=== PATIENT | female | born 1990 | race Caucasian/White ===

== ENCOUNTER → 2017-06-29 | Outpatient (CLI) | payer BC | END | disposition home or self-care (01) | LOC: C.PAPS 12:12 | PROVIDERS: ATTEND Family Medicine | DX: Z01.419 Encounter for gynecological examination (general) (routine) without abnormal findings (principal) ==

== ENCOUNTER 2020-08-10 17:46 | Inpatient (IN) ==
[2020-08-10] MEDS ORDERED: OXYTOCIN 30 UNITS/500 ML BAG IV PRN ×2 (18:42→18:45)
[2020-08-10 19:30] LABS: Hematocrit (blood only) 35.5 % (37-47); Hemoglobin 12.4 g/dL (12.0-16.0); Mean Corpuscular Hemoglobin 31.7 pg (25-34); Mean Corpuscular Hgb Conc 34.9 g/dL (32-36); Mean Corpuscular Volume 90.8 fL (80-100); Mean Platelet Volume 13.7 fL (7.4-10.4); Platelet Count 163 K/uL (130-400); RDW Coefficient of Variation 12.7 % (11.5-14.5); RDW Standard Deviation 41.5 fL (36.4-46.3); Red Blood Count 3.91 M/uL (4.2-5.4); White Blood Count 10.79 K/uL (4.8-10.8)
[2020-08-10 19:49] LABS: Creatinine Clr Calc Pharmacy 86.4 ml/min; Est GFR (Non-African American) 80.3
[2020-08-10] MEDS: LACTATED RINGER'S 1,000 ML IV PRN (20:00)
[2020-08-10] MEDS ORDERED: BUTORPHANOL TARTRATE 1 MG/ML VIAL IV PRN (20:18)
[2020-08-10] MEDS ORDERED: ONDANSETRON INJ 2 MG/ML 2 ML VIAL IV PRN (20:18)
--- NOTE | 2020-08-10 20:24 | History & Physical Report ---
Date of Service August 10, 2020 Assessment & Plan Admission and Anticipated Discharge Date Admission Date: August 10, 2020 IUP at 38 4/7 weeks with suspected cholestasis of . will sent rest of PIH labs as BP is mildly elevated Orders for IV Zofran and Stadol placed for PRN use. hold on pitocin until contraction pattern slows. would like to attempt unmedicated anticipate vaginal delivery History of Present Illness Primary Care Provider: Silvia Pruett MD Patient is a 30 yo white female EDC 08/20/20 who presented to the office today with a chief complaint of intense pruritis especially of her palms & soles of her feet. bloodwork was done to rule out cholestasis of . bile acids are still pending, but AST & ALT are mildly elevated. After consultation with [facility], it was recommended that she be delivered. she now presents for IOL. no PIH symptoms. having some cramping but no ctns yet. baby active. GBS negative. up to this point has been uncomplicated. Allergies Allergy/AdvReac Type Severity Reaction Status Date / Time codeine Allergy Unknown Unknown Verified 08/10/20 15:39 Home Medications Medication Instructions Recorded Confirmed Type prenat.vits,nick,[id number]-[id number] 1 tab PO DAILY 01/01/20 08/10/20 History ferrous sulfate 65 mg PO BID 06/10/20 08/10/20 History Patient History Medical History Chronic tonsillitis Encounter for anatomic survey Evaluate anatomy not seen on prior sonogram H/O varicella Miscarriage Surgical History S/P eye surgery S/P wisdom tooth extraction Family History Father Melanoma, Onset Age: 58 Dyslipidemia Hearing loss Sister Asherman syndrome Hypothyroidism Graves Mother Bipolar 1 disorder Grandfather (Maternal) Myocardial infarction Cardiac disorder Grandfather (Paternal) Prostate cancer Cardiac disorder Colorectal cancer Grandmother (Paternal) Cardiac disorder Denies family history of Malignant hypothermia due to anesthesia Ovarian cancer Breast cancer Social History Smoking Status: Never smoker Second Hand Exposure: No; Hx Alcohol Use: No Hx Substance Use: No Preferred Language: Indonesian Communication Ability: Effective Visual Impairment: No Limitations Hearing Ability: Normal Devops Required: No Beliefs That Will Affect Care: None marital status: marital status details: Oscar (31) [phone] or [phone] Current Living Situation: Spouse Current Living Situation Comment: lives with spouse, 1 cat, spouse to change litter current occupational status: employed current occupation: [employer] Other Information That Helps Us Care for You: No Feels Safe at Home: Yes Safety Concerns: Feels Safe At This Time Childhood Exposure to Second-Hand Smoke: No Dental Care, Regularly: Yes Physical Activity Frequency: 1-2 Times per Week Seatbelt Use: always Sunscreen Use: Yes Assistive Devices: None Review of Systems All systems reviewed & are unremarkable except as noted in HPI & below Physical Exam Constitutional: WD/WN, vitals as above Respiratory: normal respiratory effort, lungs clear to auscultation Cardiovascular: RRR, no murmur, no edema Gastrointestinal (Abdomen): normal bowel sounds, soft, nontender, no hepatosplenomegaly Psychiatric: A+Ox3, euthymic affect Genitourinary: OB Exam Abdomen: + irregular contractions (mild) Manual OB Exam: + cervical dilation 1 cm, + cervical effacement 70% and + station -1 (posterior) OB Exam Monitor Tracing: + external FHT monitor used, + external uterine monitor used, + category I and + normal FHT variability patient counselled on IOL starting with cervical balloon. the procedure and it's risks were reviewed with the patient & her and they accept. After the speculum was placed, the cervical balloon was inserted easily into the os and then instilled with 40cc of water and placed on traction against right thigh. patient tolerated the procedure well. Results & Data ([facility]) Vital Signs (Past 12 Hours) Vital Signs Temp Pulse Resp BP 08/10/20 19:15 98.6 F 68 18 139/91 08/10/20 19:08 98.6 F 18 08/10/20 18:45 20 08/10/20 18:15 98.2 F 20 08/10/20 18:03 98.4 F 73 18 146/92 H Code Status & VTE Plan VTE Prophylaxis Plan VTE Prophylaxis will be ordered: No Coding Level of Care Code None CPT Codes Misx Procedure Codes - 76232 Placement of cervical dilator: 09737 Placement of cervical dilator ([id number])
[2020-08-10 20:27] LABS: Protein Creatinine Ratio Urine 0.2 (0-0.2); Total Protein Urine Random 20.9 mg/dl (0-11.9)
[2020-08-11] MEDS ORDERED: CALCIUM CARBONATE 500 MG CHEWABLE TAB PO ONE (01:04)
[2020-08-11] MEDS ORDERED: BUPIVACAINE 0.25% 30 ML VIAL ONE ×2 (02:18→02:59)
[2020-08-11] MEDS ORDERED: fentaNYL 2MCG/ML ROPIVACAINE 1.25MG/ML 100 ML BAG EPI ONE (02:18)
[2020-08-11] MEDS ORDERED: fentaNYL citrate 100 MCG/2 ML VIAL ONE (02:18)
[2020-08-11] MEDS ORDERED: ePHEDrine sulfate 50 MG/ML AMP ONE (02:18)
[2020-08-11] MEDS ORDERED: SODIUM CHLORIDE 0.9% INJ 10 ML VIAL ONE (02:18)
[2020-08-11] MEDS ORDERED: NALOXONE HCL 1 MG in SODIUM CHLORIDE 0.9% 1000ML 1,000 ML IV PRN ×2 (02:23→10:53)
[2020-08-11] MEDS ORDERED: ePHEDrine sulfate 50 MG/ML AMP IV PRN ×2 (02:23→10:53)
[2020-08-11] MEDS ORDERED: diphenhydrAMINE 50 MG/ML VIAL IV PRN ×2 (02:23→10:53)
[2020-08-11] MEDS ORDERED: fentaNYL 2MCG/ML ROPIVACAINE 1.25MG/ML 100 ML BAG EPI PRN (02:23)
[2020-08-11] MEDS ORDERED: ONDANSETRON INJ 2 MG/ML 2 ML VIAL IV PRN ×2 (02:23→10:53)
[2020-08-11] MEDS ORDERED: NALOXONE HCL 0.4 MG/1 ML VIAL/CARP IV PRN ×2 (02:23→10:53)
--- NOTE | 2020-08-11 02:25 | Anesthesiology Consultation ---
Date of Service August 11, 2020 Assessment & Plan (1) Encounter for pre-operative examination: Chart Review Chart Review: Patient NOT seen in Pre Admission Testing and Acceptable Risk for Labor Epidural Consults Requested none History Height/Weight Height: 5 ft 4 in Weight: 77.111 kg Allergies Allergy/AdvReac Type Severity Reaction Status Date / Time codeine Allergy Unknown Unknown Verified 08/10/20 15:39 Medications Home Medications Medication Instructions Recorded Confirmed Last Taken prenat.vits,nick,qof-spxg-asqux 1 tab PO DAILY 01/01/20 08/10/20 08/10/20 ferrous sulfate 65 mg PO BID 06/10/20 08/10/20 08/10/20 Active Medications Generic Name Dose Route Start Last Admin Trade Name Freq PRN Reason Stop Dose Admin Butorphanol Tartrate 1 mg 08/10/20 20:18 08/11/20 00:18 Butorphanol Tartrate 1 Mg/Ml Vial IV 09/09/20 20:17 1 mg Q2H PRN Administration Pain Lactated Ringer's 1,000 mls @ 125 mls/hr 08/10/20 18:42 08/11/20 01:30 Lr IV 08/12/20 18:41 0 mls/hr .Q8H PRN Infusion L&D Protocol Protocol Ondansetron HCl 4 mg 08/10/20 20:18 08/11/20 00:16 Ondansetron Inj 2 Mg/Ml 2 Ml Vial IV 09/09/20 20:17 4 mg Q6H PRN Administration Nausea Past Medical History Medical History Chronic tonsillitis Encounter for anatomic survey Evaluate anatomy not seen on prior sonogram H/O varicella Miscarriage Exercise / Class Metabolic Activity II 4-5 Yardwork/Stairs/Walk up hill Past Family History Family History Father Melanoma, Onset Age: 58 Dyslipidemia Hearing loss Sister Asherman syndrome Hypothyroidism Graves Mother Bipolar 1 disorder Grandfather (Maternal) Myocardial infarction Cardiac disorder Grandfather (Paternal) Prostate cancer Cardiac disorder Colorectal cancer Grandmother (Paternal) Cardiac disorder Denies family history of Malignant hypothermia due to anesthesia Ovarian cancer Breast cancer Past Surgical History Surgical History S/P eye surgery S/P wisdom tooth extraction Past Anesthesia History No Hx of Anesthesia Complications and No Family Hx of Anesthesia Complications History of PONV No Hx of PONV and No Hx of Motion Sickness Social History Smoking Status: Never smoker Do You Dip or Chew Tobacco: No Hx Alcohol Use: No Alcohol type: beer and wine Hx Substance Use: No Physical Exam Vital Signs Last Vital Signs Temp 37.0 C 08/11/20 01:21 Pulse 76 08/11/20 02:40 Resp 18 08/10/20 23:10 BP 121/67 08/11/20 01:21 Pulse Ox 92 08/11/20 02:40 Testing Laboratory Results 08/10/20 19:08 08/10/20 19:08
[2020-08-11] MEDS: LACTATED RINGER'S 1,000 ML IV PRN ×2 (02:45→07:08)
[2020-08-11] MEDS ORDERED: ERYTHROMYCIN OP OINT 1 GM PKT ONE (03:16)
--- NOTE | 2020-08-11 09:39 | Obstetrical Progress Note ---
Date of Service August 11, 2020 Assessment & Plan (1) with 38 completed weeks gestation: (2) Cholestasis during : Admission and Anticipated Discharge Date Admission Date: August 10, 2020 Patient has been pushing off and no for about 3 hours now. She has good effort but not really moving baby . We discussed options at this point. Can attempt to place a vacuum but did discuss my concern about appropriate placement with the caput noted. Discussed the risk of pop offs, hematomas, skin disruption on the scalp. Discussed if wants to could just go to c/s--r/b/se explained. discussed that if could not get any progress with vacuum would then necessitate a c/s. Patient will continue to push until or cleaned and then it sounds like they wish me to attempt a vacuum. Fetus overall reassuring with pushing. Subjective Patient pushing with good effort, getting tired, uncomfortable. Physical Exam Constitutional: WD/WN, vitals as above Psychiatric: A+Ox3, euthymic affect Genitourinary: cx--complete/ +1 at best at the end of the push. large amount of caput noted, baby slips back up to 0 station after push, not really staying down. toco--q2-4min, pit at 5 efm--150s wtih mod variability, variables with pushing. [facility] & [facility] ([facility] Vital Signs (Past 12 Hours) Vital Signs Temp Pulse Resp BP Pulse Ox 08/11/20 09:31 97 H 97 08/11/20 09:26 92 H 97 08/11/20 09:21 134 H 97 08/11/20 09:20 93 H 125/63 08/11/20 09:16 148 H 97 08/11/20 09:11 89 97 08/11/20 09:10 92 H 129/76 08/11/20 09:06 105 H 97 08/11/20 09:01 81 99 08/11/20 09:00 37.1 C 22 08/11/20 08:56 130 H 98 08/11/20 08:51 110 H 98 08/11/20 08:46 84 97 08/11/20 08:45 18 08/11/20 08:41 111 H 96 08/11/20 08:36 125 H 116/60 98 08/11/20 08:31 78 97 08/11/20 08:30 20 12/22/20 08:26 105 H 97 08/11/20 08:21 86 98 08/11/20 08:16 122 H 99 08/11/20 08:12 65 94 08/11/20 08:11 73 97 08/11/20 08:06 89 100 08/11/20 08:05 60 139/79 08/11/20 08:01 70 96 08/11/20 08:00 22 08/11/20 07:58 65 151/72 H 08/11/20 07:56 80 99 08/11/20 07:51 83 99 08/11/20 07:46 65 99 08/11/20 07:45 22 08/11/20 07:41 94 H 99 08/11/20 07:36 77 98 08/11/20 07:34 81 114/71 08/11/20 07:31 71 98 08/11/20 07:30 22 08/11/20 07:26 101 H 98 08/11/20 07:21 79 97 08/11/20 07:16 98 H 98 08/11/20 07:11 36.8 C 93 H 22 98 08/11/20 07:06 96 H 97 08/11/20 07:01 76 97 08/11/20 07:00 18 08/11/20 06:56 85 97 08/11/20 06:51 89 97 08/11/20 06:50 90 123/68 08/11/20 06:46 80 97 08/11/20 06:41 93 H 96 08/11/20 06:36 87 97 08/11/20 06:35 77 123/56 L 08/11/20 06:31 101 H 97 08/11/20 06:30 18 08/11/20 06:26 97 H 97 08/11/20 06:21 80 113/65 97 08/11/20 06:16 37.2 C 80 99 08/11/20 06:11 84 98 08/11/20 06:06 91 H 98 08/11/20 06:01 77 95 08/11/20 06:00 18 08/11/20 05:56 79 99 08/11/20 05:51 61 100 08/11/20 05:49 62 148/78 H 08/11/20 05:46 60 96 08/11/20 05:41 68 97 08/11/20 05:36 75 148/81 H 98 08/11/20 05:31 73 99 08/11/20 05:30 18 08/11/20 05:26 92 H 98 08/11/20 05:22 69 94 08/11/20 05:21 81 99 08/11/20 05:19 71 138/83 08/11/20 05:16 65 96 08/11/20 05:11 79 97 08/11/20 05:06 84 95 08/11/20 05:01 99 H 96 08/11/20 05:00 18 08/11/20 04:56 112 H 99 08/11/20 04:51 94 H 97 08/11/20 04:50 78 121/59 L 08/11/20 04:47 84 92 08/11/20 04:46 75 99 08/11/20 04:41 108 H 99 08/11/20 04:36 72 100 08/11/20 04:35 93 H 118/58 L 08/11/20 04:34 85 94 08/11/20 04:31 75 99 08/11/20 04:30 18 08/11/20 04:26 75 99 08/11/20 04:23 107 H 92 08/11/20 04:21 71 100 08/11/20 04:19 72 140/82 08/11/20 04:16 87 100 08/11/20 04:11 65 100 08/11/20 04:06 71 100 08/11/20 04:05 63 144/81 H 08/11/20 04:04 84 92 08/11/20 04:01 65 100 08/11/20 04:00 18 08/11/20 03:56 59 L 100 08/11/20 03:51 77 100 08/11/20 03:50 58 L 124/71 08/11/20 03:46 60 100 08/11/20 03:41 63 100 08/11/20 03:36 61 100 08/11/20 03:35 60 131/84 08/11/20 03:31 77 100 08/11/20 03:30 18 08/11/20 03:26 72 100 08/11/20 03:21 72 100 08/11/20 03:16 64 100 12/22/20 03:15 75 107/81 12/22/20 03:11 89 100 08/11/20 03:10 68 118/59 L 08/11/20 03:06 70 100 08/11/20 03:02 81 118/73 08/11/20 03:01 74 100 08/11/20 03:00 18 08/11/20 02:56 86 100 08/11/20 02:55 18 08/11/20 02:53 18 08/11/20 02:52 74 118/56 L 08/11/20 02:51 72 18 100 08/11/20 02:50 71 124/67 08/11/20 02:49 18 08/11/20 02:48 69 119/61 08/11/20 02:47 83 18 122/68 08/11/20 02:46 88 18 100 08/11/20 02:45 18 08/11/20 02:42 69 137/62 08/11/20 02:41 72 100 08/11/20 02:40 76 92 08/11/20 02:36 61 100 08/11/20 01:21 37.0 C 64 121/67 08/11/20 00:24 60 109/58 L 08/10/20 23:10 37.0 C 77 18 125/70 08/10/20 22:06 58 L 132/74 PG Care Time/CCT Total # of Minutes Spent Total Time Spent with Patient: Total time spent is greater than 50% in c oordination of care (as documented) at patient's floor/unit and/or counseling patient: Coding Level of Care Code None Diagnoses with 38 completed weeks gestation Z3A.38 Cholestasis during O26.619; K83.1
[2020-08-11] MEDS ORDERED: LACTATED RINGER'S 1,000 ML IV SCH ×2 (10:00→11:30)
[2020-08-11] MEDS ORDERED: MoRPHine SULFATE PF 1 MG/ML 10 ML AMP/VIAL ONE (10:02)
--- NOTE | 2020-08-11 10:03 | Communication Note ---
Date of Service: August 11, 2020 Again discussed options of continued pushing, attempt at vacuum assist, proceeding to c/s. Discuseed r/b/se of each. the patient has essentially not moved the baby past 0-+1 for the 2 + hours I have been caring for this patient. They have decided to proceed to c/s. Consent form reviewed and signed. Will proceed. fht--155 with mod variability, variables resolved without pushing.
[2020-08-11] MEDS ORDERED: CITRIC ACID/SODIUM CITRATE 15 ML UDC ONE (10:12)
[2020-08-11] MEDS ORDERED: CITRIC ACID/SODIUM CITRATE 15 ML UDC PO SCH (10:15)
[2020-08-11] MEDS ORDERED: ceFAZolin 2000MG 2,000 MG/15 ML SYR IV SCH (10:15)
[2020-08-11] MEDS ORDERED: PROMETHAZINE HCL 12.5 MG in SODIUM CHLORIDE 0.9% 50 ML IV PRN (10:53)
[2020-08-11] MEDS ORDERED: LACTATED RINGER'S 500 ML IV PRN (10:53)
[2020-08-11] MEDS ORDERED: ARISTA ABSORBABLE HEMOSTAT 3GM TOP ONE (10:53)
[2020-08-11] MEDS ORDERED: MEPERIDINE HCL 25 MG/ML CARP/VIAL IV PRN (10:53)
[2020-08-11] MEDS ORDERED: NALOXONE HCL 0.08 MG in SYRINGE 1.8 ML IV PRN (10:53)
[2020-08-11] MEDS ORDERED: MoRPHine SULFATE PF 1 MG/ML 10 ML AMP/VIAL EPI ONE (10:53)
[2020-08-11] MEDS ORDERED: NO NARCOTICS OR SEDATIVES SCH (11:00)
[2020-08-11] MEDS ORDERED: SODIUM CHLORIDE 0.9% 1000ML 1,000 ML IV SCH (11:00)
[2020-08-11] MEDS ORDERED: METOCLOPRAMIDE HCL INJ 5 MG/ML 2 ML VIAL ONE (11:05)
[2020-08-11] MEDS ORDERED: OXYTOCIN 10 UNITS/ML VIAL ONE (11:05)
[2020-08-11] MEDS ORDERED: PHENYLEPHRINE 100MCG/ML 5ML SYR ONE (11:05)
[2020-08-11] MEDS ORDERED: ONDANSETRON INJ 2 MG/ML 2 ML VIAL ONE (11:05)
[2020-08-11] MEDS ORDERED: PATIENT'S ALLERGY INFO NEEDS ENTERED SCH (11:15)
[2020-08-11] MEDS ORDERED: SUPERCREAM 0.870% 15 GM JAR EXT PRN (11:22)
[2020-08-11] MEDS ORDERED: DIPHTHERIA/TETANUS/PERTUSSIS 0.5 ML SYR/VIAL IM ONE (11:22)
[2020-08-11] MEDS ORDERED: BENZOCAINE 20% AER SPR 82.5 GM CAN EXT PRN (11:22)
[2020-08-11] MEDS ORDERED: HYDROCORTISONE ACETATE 25 MG SUPP PR PRN (11:22)
[2020-08-11] MEDS ORDERED: MAGNESIUM HYDROXIDE SUSP 30 ML UDC PO PRN (11:22)
[2020-08-11] MEDS ORDERED: SENNA 8.6 MG TAB PO PRN (11:22)
--- NOTE | 2020-08-11 11:33 | Operative Report ---
PG Post Operative Report Pre & Post Diagnosis Operation Date: 08/11/20 10:20 Pre-Op Diagnosis: at 38 Weeks; Cholestasis; Failure to Descend Post-Op Diagnosis: Same; Delivery of a live male child at 1038 I identified the patient and participated in the time-out.: Yes Procedure Operation Date: 08/11/20 10:20 Actual Procedures p primary low transverse Section in LD(Bilateral) - Fabiola Chao MD, FACOG Surgeon Fabiola Chao MD, FACOG Bed Spring Maker Vita Griffin RN Estimated Blood Loss 600 Findings Consistent with Post-Op Diagnosis viable male infant in cephalic presentation, nl utx/tubes/ovs bilaterally Fluids 2000cc Specimens none Drains monte Anesthesia Type Labor Epidural Complications none Disposition Accompanied Patient To Recovery: Yes Disposition: L&D Indications Patient is a 30yowf who presented to labor and delivery at 38 4/7 weeks with presumed choliestasis of . Patient progressed spontaneously after srom to c/c. she pushed effectively for over 3 hours and did not bring the baby past +1 station. Description of Procedure The patient was taken to the operating room where she was identified verbally and by bracelet. She was seated on the operating table where her epidural anesthetic was dosed. she was then placed in the supine position with a leftward tilt. A Monte catheter had been placed sterilely. the patient was prepped and draped in a normal standard fashion. the anesthetic was tested and found to be adequate. A time-out was held, identifying correct patient, procedure, positioning and preoperative antibiotics. There were no concerns. A Pfannenstiel skin incision was made with a knife and taken down to the underlying layer of fascia with the knife and Bovie electrocautery. Bleeding was attended to with Bovie cautery. The fascia was incised in the midline with the knife and taken out laterally with scissors. the superior edge of the fascial incision was grasped, elevated and the underlying layer of rectus muscle was taken off bluntly and with scissors. In a similar fashion, the inferior edge of the fascial incision was grasped, elevated and the underlying layer of rectus muscle was taken off bluntly and with scissors. The muscles were s eparated bluntly in the midline. The peritoneum was entered bluntly. The incision was then stretched. The bladder blade was placed. The vesicouterine peritoneum was identified, entered with scissors and taken out laterally with scissors. The bladder flap was created digitally A hysterotomy incision was scored with a knife and the incision was stretched cephalad and caudad with the pole sander operator's fingers. Thick meconium was noted on entering the uterus. The operators hand was placed into the incision and the head was delivered atraumatically, it was very deep in the pelvis. No nuchal cord. The nose and mouth were bulb suctioned. the rest of the was then delivered without difficulty. The nose and mouth were again bulb suctioned. the cord was clamped and cut and the infant was then handed off to the awaiting dowel inspector for drying and attention. Cord blood and segment were obtained. The placenta was manually extraced. the uterus was exteriorized and cleared of all clot and debris with moistened laparotomy sponges. The hysterotomy incision was repaired in two layers, the first in a running locked layer, the second in an imbricating layer. Hemostasis was noted to be good. Posterior cul-de-sac was irrigated and cleared of all clot and debris. The hysterotomy incision was again inspected and found to be hemostatic. the uterus was reinteriorized. Hysterotomy incision was again inspected and found to be hemostatic. Saritha was placed on the incision and bladder flap. Rectus muscles were reapproximated with several interrupted stitches of 0 Vicryl. The fascia was then reapproximated with 0 Vicryl starting at the edges and meeting in the midline. The subcuticular tissues were copiously irrigated and bleeding was attended to with cautery. The skin was then closed with 4-0 Vicryl in a subcuticular fashion. I attest to the content of the Intraoperative Record and any orders documented therein. Any exceptions are noted below. OB Procedure charges OB Charges 50067 C/S
[2020-08-11 11:37] LABS: Base Excess Cord Arterial Bld -6.4 mEq/L (-9-1.8); CO2 Cord Arterial Blood 50 mmHg (39.1-73.5); Cord Venous Blood HCO3 20 mmol/L (18.4-26.8); Cord Venous Blood PCO2 41 mmHg (30.4-57.2); Cord Venous Blood PO2 19 mmHg (14.1-43.3); Cord Venous Blood pH 7.31 (7.20-7.44); HCO3 Cord Arterial Blood 21 mmol/L (19.7-28.5); PO2 Cord Arterial Blood 11 mmHg (4.1-31.7); pH Cord Arterial Blood 7.25 (7.1-7.38)
[2020-08-11 11:38] LABS: O2 Saturation Cord Venous Bld < 60.0 % (<68); Oxygen Sat Cord Arterial Blood < 60.0 % (<60)
--- NOTE | 2020-08-11 12:18 | Anesthesia Procedure Note ---
Date of Service August 11, 2020 Anesthesia Post Epidural Note Vital Signs Vital Signs: Temp Pulse Resp BP Pulse Ox 36.9 C 88 25 H 109/64 99 08/11/20 11:34 08/11/20 12:12 08/11/20 11:34 08/11/20 12:12 08/11/20 12:12 Pain Intensity Abdomen: Pain Intensity: 9 Notes Mental Status: alert / awake / arousable and participated in evaluation Nausea / Vomiting: adequately controlled Pain: adequately controlled Airway Patency, RR, SpO2: stable & adequate BP & HR: stable & adequate Hydration State: stable & adequate Neuraxial Anesthesia: was administered and sensory block is resolving Anesthetic Complications: no major complications apparent Epidural: Removed without complications and With tip intact
[2020-08-11] MEDS: OXYTOCIN 20 UNITS in LACTATED RINGER'S 1,000 ML IV SCH ×2 (12:39→20:45)
[2020-08-11] MEDS: KETOROLAC 30 MG/ML VIAL IV PRN (15:25)
[2020-08-11] MEDS: SIMETHICONE 80 MG CHEW PO SCH ×3 (15:25→20:16)
--- NOTE | 2020-08-11 18:16 | Anesthesiology Progress Note ---
Date of Service August 11, 2020 Anesthesia Post Procedure Vital Signs Vital Signs: Temp Pulse Pulse Resp BP BP Pulse Ox 08/11/20 17:40 20 99 08/11/20 16:40 20 98 08/11/20 15:40 37.3 C 76 20 122/78 98 08/11/20 14:05 36.9 C 20 08/11/20 13:52 81 93 08/11/20 13:47 77 93 08/11/20 13:42 79 94 08/11/20 13:37 88 92 08/11/20 13:35 83 112/65 08/11/20 13:32 87 94 08/11/20 13:27 81 93 08/11/20 13:22 91 H 94 08/11/20 13:17 73 92 08/11/20 13:12 88 93 08/11/20 13:07 88 92 08/11/20 13:05 81 116/66 08/11/20 13:02 79 16 94 08/11/20 12:57 81 94 08/11/20 12:52 82 93 08/11/20 12:47 84 95 08/11/20 12:42 85 95 08/11/20 12:37 82 99 08/11/20 12:32 36.8 C 81 16 117/68 100 08/11/20 12:27 89 100 08/11/20 12:22 85 16 113/69 100 08/11/20 12:17 93 H 99 08/11/20 12:12 88 109/64 99 08/11/20 12:07 83 100 08/11/20 12:02 94 H 16 128/73 100 08/11/20 11:57 94 H 100 08/11/20 11:52 93 H 100 08/11/20 11:47 96 H 96 08/11/20 11:44 16 145/48 H 08/11/20 11:42 92 H 100 08/11/20 11:37 86 100 08/11/20 11:34 36.9 C 25 H 110/60 08/11/20 11:32 95 H 100 08/11/20 11:27 90 99 08/11/20 11:25 108 H 184/67 H 08/11/20 11:22 87 100 08/11/20 10:16 93 H 99 08/11/20 10:11 102 H 94 08/11/20 10:06 76 98 08/11/20 10:05 90 139/94 08/11/20 10:01 81 98 08/11/20 10:00 22 08/11/20 09:56 91 H 99 08/11/20 09:51 108 H 97 08/11/20 09:49 92 H 122/75 08/11/20 09:46 106 H 97 08/11/20 09:45 20 08/11/20 09:41 99 H 97 08/11/20 09:36 153 H 97 08/11/20 09:31 97 H 97 08/11/20 09:26 92 H 97 08/11/20 09:21 134 H 97 08/11/20 09:20 93 H 125/63 08/11/20 09:16 148 H 97 08/11/20 09:11 89 97 08/11/20 09:10 92 H 129/76 08/11/20 09:06 105 H 97 08/11/20 09:01 81 99 08/11/20 09:00 37.1 C 22 08/11/20 08:56 130 H 98 08/11/20 08:51 110 H 98 08/11/20 08:46 84 97 08/11/20 08:45 18 08/11/20 08:41 111 H 96 08/11/20 08:36 125 H 116/60 98 08/11/20 08:31 78 97 08/11/20 08:30 20 08/11/20 08:26 105 H 97 08/11/20 08:21 86 98 08/11/20 08:16 122 H 99 08/11/20 08:12 65 94 08/11/20 08:11 73 97 08/11/20 08:06 89 100 08/11/20 08:05 60 139/79 08/11/20 08:01 70 96 08/11/20 08:00 22 08/11/20 07:58 65 151/72 H 08/11/20 07:56 80 99 08/11/20 07:51 83 99 08/11/20 07:46 65 99 08/11/20 07:45 22 08/11/20 07:41 94 H 99 08/11/20 07:36 77 98 08/11/20 07:34 81 114/71 08/11/20 07:31 71 98 12/22/20 07:30 22 08/11/20 07:26 101 H 98 08/11/20 07:21 79 97 08/11/20 07:16 98 H 98 08/11/20 07:11 36.8 C 93 H 22 98 08/11/20 07:06 96 H 97 08/11/20 07:01 76 97 08/11/20 07:00 18 08/11/20 06:56 85 97 08/11/20 06:51 89 97 08/11/20 06:50 90 123/68 08/11/20 06:46 80 97 08/11/20 06:41 93 H 96 08/11/20 06:36 87 97 08/11/20 06:35 77 123/56 L 08/11/20 06:31 101 H 97 08/11/20 06:30 18 08/11/20 06:26 97 H 97 08/11/20 06:21 80 113/65 97 08/11/20 06:16 37.2 C 80 99 08/11/20 06:11 84 98 08/11/20 06:06 91 H 98 08/11/20 06:01 77 95 08/11/20 06:00 18 08/11/20 05:56 79 99 08/11/20 05:51 61 100 08/11/20 05:49 62 148/78 H 08/11/20 05:46 60 96 08/11/20 05:41 68 97 08/11/20 05:36 75 148/81 H 98 08/11/20 05:31 73 99 08/11/20 05:30 18 08/11/20 05:26 92 H 98 08/11/20 05:22 69 94 08/11/20 05:21 81 99 08/11/20 05:19 71 138/83 08/11/20 05:16 65 96 08/11/20 05:11 79 97 08/11/20 05:06 84 95 08/11/20 05:01 99 H 96 08/11/20 05:00 18 08/11/20 04:56 112 H 99 08/11/20 04:51 94 H 97 08/11/20 04:50 78 121/59 L 08/11/20 04:47 84 92 08/11/20 04:46 75 99 08/11/20 04:41 108 H 99 08/11/20 04:36 72 100 08/11/20 04:35 93 H 118/58 L 08/11/20 04:34 85 94 08/11/20 04:31 75 99 08/11/20 04:30 18 08/11/20 04:26 75 99 08/11/20 04:23 107 H 92 08/11/20 04:21 71 100 08/11/20 04:19 72 140/82 08/11/20 04:16 87 100 08/11/20 04:11 65 100 08/11/20 04:06 71 100 08/11/20 04:05 63 144/81 H 08/11/20 04:04 84 92 08/11/20 04:01 65 100 08/11/20 04:00 18 08/11/20 03:56 59 L 100 08/11/20 03:51 77 100 08/11/20 03:50 58 L 124/71 08/11/20 03:46 60 100 08/11/20 03:41 63 100 08/11/20 03:36 61 100 08/11/20 03:35 60 131/84 08/11/20 03:31 77 100 08/11/20 03:30 18 08/11/20 03:26 72 100 08/11/20 03:21 72 100 08/11/20 03:16 64 100 08/11/20 03:15 75 107/81 08/11/20 03:11 89 100 08/11/20 03:10 68 118/59 L 08/11/20 03:06 70 100 08/11/20 03:02 81 118/73 08/11/20 03:01 74 100 08/11/20 03:00 18 08/11/20 02:56 86 100 08/11/20 02:55 18 08/11/20 02:53 18 08/11/20 02:52 74 118/56 L 08/11/20 02:51 72 18 100 08/11/20 02:50 71 124/67 08/11/20 02:49 18 08/11/20 02:48 69 119/61 08/11/20 02:47 83 18 122/68 08/11/20 02:46 88 18 100 08/11/20 02:45 18 08/11/20 02:42 69 137/62 08/11/20 02:41 72 100 08/11/20 02:40 76 92 08/11/20 02:36 61 100 08/11/20 01:21 37.0 C 64 121/67 08/11/20 00:24 60 109/58 L 08/10/20 23:10 37.0 C 77 18 125/70 08/10/20 22:06 58 L 132/74 08/10/20 21:07 60 125/81 08/10/20 19:15 37.0 C 68 18 139/91 08/10/20 19:08 37.0 C 18 08/10/20 18:45 20 Pain Intensity Abdomen: Pain Intensity: 4 Transfer of Care Handoff Completed per policy Notes Mental Status: alert / awake / arousable Patient Amnestic to Procedure: Yes Nausea / Vomiting: adequately controlled Pain: adequately controlled Airway Patency, RR, SpO2: stable & adequate BP & HR: stable & adequate Hydration State: stable & adequate Anesthetic Complications: no major complications apparent
[2020-08-11] MEDS ORDERED: DOCUSATE SODIUM 100 MG CAP PO ONE (19:44)
[2020-08-11] MEDS: DOCUSATE SODIUM 100 MG CAP PO SCH (20:17)
[2020-08-11] MEDS ORDERED: CALCIUM CARBONATE 500 MG CHEWABLE TAB ONE (20:20)
[2020-08-11] MEDS ORDERED: CALCIUM CARBONATE 500 MG CHEWABLE TAB PO PRN (20:27)
[2020-08-12] MEDS: KETOROLAC 30 MG/ML VIAL IV PRN (00:06)
[2020-08-12] MEDS ORDERED: diphenhydrAMINE Capsule 25 MG CAP PO PRN (04:54)
[2020-08-12] MEDS ORDERED: diphenhydrAMINE 50 MG/ML VIAL IV PRN (04:54)
[2020-08-12] MEDS ORDERED: DC INTRASPINAL MORPHINE ONE (04:54)
[2020-08-12] MEDS ORDERED: KETOROLAC 30 MG/ML VIAL IV PRN (04:54)
[2020-08-12] MEDS ORDERED: MEPERIDINE HCL 50 MG/ML CARP IV PRN (04:54)
[2020-08-12] MEDS ORDERED: ONDANSETRON INJ 2 MG/ML 2 ML VIAL IV PRN (04:54)
[2020-08-12] MEDS ORDERED: PROMETHAZINE HCL 25 MG in SODIUM CHLORIDE 0.9% 50 ML IV PRN (04:54)
[2020-08-12] MEDS: IBUPROFEN 600 MG TAB PO PRN ×4 (05:16→23:19)
[2020-08-12] MEDS: oxyCODONE/ACETAMINOPHEN 5mg/325mg TAB PO PRN ×4 (05:17→23:18)
--- NOTE | 2020-08-12 06:00 | Obstetrical Progress Note ---
Date of Service <Jeramy George MD - Last Filed: 08/12/20 07:36> August 12, 2020 Assessment & Plan <Jeramy George MD - Last Filed: 08/12/20 07:36> (1) state: 30 y/o s/p pLTCS for failure to progress on 08/11/20 POD1. Presumed cholestasis of . O neg. rubella immune. Stable - wbc 10.79->17.78. continue monitoring for infection - Hb 12.4->9.5. appropriate - - will ambulate later today. voiding trial. - advance diet from clears to regular OB - continue routine care (2) Cholestasis during : - presumed. patient presented w/ intense itching the day prior to delivery - elevated AST 48, ALT 81, alk phos 213 on 08/10/20 - normal tbili - other cholestasis labs pending - no further action at this time Subjective <Jeramy George MD - Last Filed: 08/12/20 07:36> Ambulation: ambulating normally Passing Gas:: Yes Diet Tolerance:: regular diet Lochia:: Moderate Feeding Type:: breast feeding Current Pain Level(1-10): 0 Butt removed this AM. Has not attempted voiding yet. No BM. Mild flatus. Current pain 0, but was 5-6/10 before pain medicine. Review of Systems Denies fever, chills, sweats Denies shortness of breath, chest pain, palpitations. Denies breast pain. Denies dysuria. Denies headache or changes in vision. Denies nausea/vomiting. Denies numbness, tingling, weakness. Physical Exam <Jeramy George MD - Last Filed: 08/12/20 07:36> General: Alert, oriented. No acute distress. Cardiac: Regular rate and rhythm, no murmurs/rubs/gallops. Respiratory: Clear to auscultation bilaterally, no wheezes/rales/rhonchi. No respiratory distress. Abdomen: , soft, apppropriately tender. LTCS incision is under bandage. Bandage appears clean. Uterus: Uterine fundus firm, palpable 1cm below umbilicus. Lower Extremities: No lower extremity edema or swelling. No deep calf pain. Hardeep's negative bilaterally. Results & Data ([facility]) <Jeramy George MD - Last Filed: 08/12/20 07:36> Vital Signs (Past 12 Hours) Vital Signs Temp Pulse Resp BP Pulse Ox 08/12/20 04:30 18 99 08/12/20 04:00 36.8 C 77 18 110/70 99 08/12/20 03:30 18 95 08/12/20 02:30 18 99 08/12/20 01:00 18 98 08/12/20 00:00 18 95 08/11/20 23:20 37.0 C 80 18 109/71 100 08/11/20 22:00 18 99 08/11/20 21:06 18 100 08/11/20 20:00 36.8 C 78 18 114/72 98 Medications Administered <Fabiola Chao MD, FACOG - Last Filed: 08/12/20 07:44> Co-Signing Physician Notes Resident Physician Supervision Note: I interviewed and examined the patient. Discussed with Dr. George and agree with findings and plan as documented in the note. Any exceptions or clarifications are listed here: Doing well. cbc consistent with labor and c/s. Progressing appropriately. Documented By: Fabiola Chao MD, FACOG
[2020-08-12 06:48] LABS: Hematocrit (blood only) 27.3 % (37-47); Hemoglobin 9.5 g/dL (12.0-16.0); Mean Corpuscular Hemoglobin 31.8 pg (25-34); Mean Corpuscular Hgb Conc 34.8 g/dL (32-36); Mean Corpuscular Volume 91.3 fL (80-100); Mean Platelet Volume 12.5 fL (7.4-10.4); Platelet Count 102 K/uL (130-400); RDW Standard Deviation 42.9 fL (36.4-46.3); Red Blood Count 2.99 M/uL (4.2-5.4); White Blood Count 17.78 K/uL (4.8-10.8)
[2020-08-12 06:49] LABS: Basophils # (auto) 0.01 K/uL (0-0.2); Basophils % (auto) 0.1 %; Eosinophils # (auto) 0.01 K/uL (0-0.5); Eosinophils % (auto) 0.1 %; Immature Granulocytes # (auto) 0.09 K/uL (0.00-0.02); Immature Granulocytes % (auto) 0.5 %; Lymphocytes # (auto) 1.84 K/uL (1.2-3.4); Lymphocytes % (auto) 10.3 %; Monocytes # (auto) 0.91 K/uL (0.11-0.59); Monocytes % (auto) 5.1 %; Neutrophils # (auto) 14.92 K/uL (1.4-6.5); Neutrophils % (auto) 83.9 %; Platelet Estimate Decreased (Normal); RBC Morphology Unremarkable
[2020-08-12] MEDS: FERROUS SULFATE 325 MG TAB PO SCH (08:11)
[2020-08-12] MEDS: SIMETHICONE 80 MG CHEW PO SCH ×4 (08:11→20:50)
[2020-08-12] MEDS: DOCUSATE SODIUM 100 MG CAP PO SCH ×2 (08:11→20:50)
[2020-08-12] MEDS: PRENATAL VITAMIN 1 TAB PO SCH (08:12)
[2020-08-12] MEDS ORDERED: bisacodyL 5 MG TABEC PO SCH (20:00)
--- NOTE | 2020-08-13 05:16 | Obstetrical Progress Note ---
Date of Service <Jeramy George MD - Last Filed: 08/13/20 07:40> August 13, 2020 Assessment & Plan <Jeramy George MD - Last Filed: 08/13/20 07:40> (1) state: 30 y/o s/p pLTCS for failure to progress on 08/11/20 POD2. Presumed cholestasis of . O neg. Rubella immune. Stable. - meeting milestones of +ambulation, voiding, BM, decreasing lochia. ok. will prescribe breast pump upon dispo. - LTCS incision healing appropriately - still requiring narcotic pain medicine for pain control - H/H stable. Hb 12.4 (prior to delivery) ->9.5 (08/12) ->9.2 (today). - continue routine care. encourage ambulation, eating, use of incentive spirometer - tentative dispo today vs tomorrow (2) Cholestasis during : - presumed. patient presented w/ intense itching the day prior to delivery - elevated AST 48, ALT 81, alk phos 213 on 08/10/20 - normal tbili - other cholestasis labs pending - no further action at this time Subjective <Jeramy George MD - Last Filed: 08/13/20 07:40> Ambulation: ambulating normally Voiding: no voiding problems Passing Gas:: Yes Diet Tolerance:: regular diet Lochia:: Moderate Feeding Type:: breast feeding Current Pain Level(1-10): 5 Moderate pain, 4-5 currently. Received Percocet 2 and ibuprofen x2 overnight. Lochia small-moderate, slightly decreased from yesterday. + BM. Eating, but low appetite. Mild breast tenderness / nipple soreness. + some loose stools. Review of Systems Denies fever, chills, sweats Denies shortness of breath, chest pain, palpitations. Denies breast pain. Denies dysuria. Denies headache or changes in vision. Denies nausea/vomiting. Denies numbness, tingling, weakness. Physical Exam <Jeramy George MD - Last Filed: 08/13/20 07:40> General: Alert, oriented. No acute distress. Cardiac: Regular rate and rhythm, no murmurs/rubs/gallops. Respiratory: Clear to auscultation bilaterally, no wheezes/rales/rhonchi. No respiratory distress. Abdomen: , soft, appropriately tender. LTCS incision has steri strips. Appears healing appropriately, nonerythematous, nonedematous. Uterus: Uterine fundus firm, palpable 2cm below umbilicus. Lower Extremities: No lower extremity edema or swelling. No deep calf pain. Hardeep's negative bilaterally. Results & Data ([facility]) <Jeramy George MD - Last Filed: 08/13/20 07:40> Vital Signs (Past 12 Hours) Vital Signs Temp Pulse Resp BP Pulse Ox 08/12/20 23:20 36.5 C 71 17 120/78 98 08/12/20 21:00 36.8 C 73 16 114/69 97 Medications Administered <Aziza Zaman MD, FACOG - Last Filed: 08/13/20 07:47> Co-Signing Physician Notes Resident Physician Supervision Note: I was present with Dr. George during the history and exam. I discussed the case with the resident and agree with the findings and plan as documented in the note. Any exceptions or clarifications are listed here: doing well, trying to find right combo of pain meds for pain control, but pain meds effective, eating, voiding, ambulating, +flatus, ff 2 down, appro tender, incision c/d/i steris. nt calves. pod #2 ltcs. doing well, will plan d/c later today but if for any reason she is concerned about going home or we are, she knows we will plan for her to stay until tomorrow. sent percocet script to pharm due to holiday hours. checked on pa pdmp. f/u 6wks pp. instructions reviewed. Documented By: Aziza Zaman MD, FACOG Resident Activity Tracking <Jeramy George MD - Last Filed: 08/13/20 07:40> Resident Involvement: Resident Care Provided Care Provided: OB Delivery
[2020-08-13] MEDS: IBUPROFEN 600 MG TAB PO PRN ×3 (05:43→17:20)
[2020-08-13] MEDS: oxyCODONE/ACETAMINOPHEN 5mg/325mg TAB PO PRN ×3 (05:44→17:21)
[2020-08-13 06:14] LABS: Hematocrit (blood only) 27.6 % (37-47); Hemoglobin 9.2 g/dL (12.0-16.0)
[2020-08-13] MEDS: SIMETHICONE 80 MG CHEW PO SCH ×2 (09:16→17:19)
[2020-08-13] MEDS: PRENATAL VITAMIN 1 TAB PO SCH (09:16)
[2020-08-13] MEDS: DOCUSATE SODIUM 100 MG CAP PO SCH (09:16)
[2020-08-13] MEDS: FERROUS SULFATE 325 MG TAB PO SCH (09:16)
[2020-08-13] MEDS ORDERED: bisacodyL 10 MG SUPP PR PRN (11:22)
--- NOTE | 2020-08-17 22:45 | Discharge Summary (DS) ---
ADMISSION DIAGNOSES: 1. Intrauterine at 38 and 4/7 weeks. 2. Suspected cholestasis of . POSTOPERATIVE DIAGNOSES: 1. Intrauterine at 38 and 4/7 weeks. 2. Suspected cholestasis of . 3. Failure to descend. PROCEDURES: 1. Primary low transverse section. HISTORY OF PRESENT ILLNESS: The patient is a 30-year-old white female 2, para 0-0-1-0 with an EDC of 08/20/2020 who presented to the office today with a chief complaint of intense pruritus especially of her palms and soles of her feet. Blood work was done to rule out cholestasis of . Bile acids were still pending, but AST and ALT are mildly elevated. [place] [facility] [place] [facility], it was recommended that she be delivered for suspected cholestasis of and she presents for induction of labor. She had no preeclampsia symptoms. Her blood pressures are normal. She is having some cramping, but no contractions. The baby is active. She is GBS negative. The has been uncomplicated up to this point. For the rest of patient's detailed history and physical, please see her dictated history and physical. ASSESSMENT: This is a G2, P0-0-1-0 at 38 and 4/7 weeks with suspected cholestasis of . Blood pressure is mildly elevated on presentation, the rest of the [facility] labs were sent and were normal. HOSPITAL COURSE: The patient was admitted. She underwent evaluation. She received an epidural. I took over the patient's care on 08/11/2020. She progressed actually spontaneously with spontaneous rupture of membranes. When I took over care, she has been pushing for 2 hours. She pushed for another additional 1 hour with good effort but not really moving the baby. We discussed options at that point and could attempt placing a vacuum as the baby was at +2 station, but the baby had significant caput and so I expressed concern about the vacuum popping off. They decided to proceed with delivery. The patient underwent a primary low transverse section to deliver a viable male infant in cephalic presentation with normal uterus, tubes, and ovaries bilaterally. The baby had significant caput, was wedged into the pelvis and was in transverse arrest. Estimated blood loss was 600 mL The patient's postoperative course was uncomplicated. She tolerated a regular diet, ambulated after the removal of her Butt catheter, voided after the removal of her Butt catheter. Her hemoglobin on discharge was 9.2. Her bile acids were pending at the time of discharge. The signs and symptoms of preeclampsia were reviewed with the patient and she will return for routine postoperative care/ care.
== END 2020-08-13 19:15 | disposition home or self-care (01) | DRG 786 ==
LOC: 4S1 17:46 → OPB 17:46 → 4S1 18:42 → 4S2 08-11 14:35

== ENCOUNTER 2024-04-26 06:49 | Inpatient (IN) ==
--- NOTE | 2024-04-18 10:11 | Anesthesiology Consultation ---
Date of Service April 18, 2024 Assessment & Plan Chart Review Chart Review: Acceptable Risk for Surgery and Patient NOT seen in Pre Admission Testing Consults Requested none History Surgery Operation Date: 04/26/24 07:30 Proposed Procedures p Section (Delivery of Baby Through Abdominal Incision - Aziza Zaman MD, FACOG Height/Weight Height: 5 ft 4 in Weight: 69.853 kg Allergies Allergy/AdvReac Type Severity Reaction Status Date / Time No Known Allergies Allergy Verified 04/17/24 13:45 Medications Home Medications Medication Instructions Recorded Confirmed Last Taken prenat.vits,nick,[id number] 1 tab PO DAILY 01/01/20 04/17/24 02/15/23 acetone (urine) test (Ketone Urine #50 ea 02/29/24 04/12/24 Unknown Test strips) blood sugar diagnostic (OneTouch #150 ea 02/29/24 04/12/24 Unknown Verio test strips) blood-glucose meter (OneTouch #1 ea 02/29/24 04/12/24 Unknown Verio Reflect Meter) lancets 33 gauge (OneTouch Delica #150 ea 02/29/24 04/12/24 Unknown Plus Lancet) calcium carbonate (Tums) 200 mg PO BID PRN Acid Reflux 04/17/24 04/17/24 Unknown docusate sodium 50 mg capsule 50 mg PO DAILY 04/17/24 04/17/24 Unknown famotidine 20 mg tablet (Pepcid) 20 mg PO QPM 04/17/24 04/17/24 Unknown ferrous sulfate 325 mg (65 mg 325 mg PO DAILY 04/17/24 04/17/24 Unknown iron) tablet Past Medical History Medical History History of cholestasis during History of COVID-19 04/08/24 home test- nasal congestion/runny nose Molar hx History of gastroesophageal reflux (GERD) Past Family History Family History Father Hearing loss Dyslipidemia Melanoma, Onset Age: 58 Sister Hypothyroidism Graves Asherman syndrome Mother Bipolar 1 disorder Grandfather (Maternal) Cardiac disorder Myocardial infarction Grandfather (Paternal) Prostate cancer Cardiac disorder Colorectal cancer Grandmother (Paternal) Cardiac disorder Son Hypospadias Other No family history of adverse response to anesthesia Denies family history of Malignant hypothermia due to anesthesia Ovarian cancer Breast cancer Past Surgical History Surgical History History of dilatation and curettage H/O section S/P wisdom tooth extraction S/P eye surgery Social History Smoking Status: Never smoker Do You Dip or Chew Tobacco: No Hx Alcohol Use: No Alcohol type: beer and wine Hx Substance Use: No substance use type: does not use Testing Laboratory Results Laboratory Tests 09/21/23 02/12/24 08:40 09:56 WBC 11.33 H Hgb 9.5 L Hct 28.7 L
--- NOTE | 2024-04-25 10:19 | History & Physical Report ---
Date of Service April 25, 2024 Assessment & Plan (1) 39 weeks gestation of : (2) Previous delivery affecting , antepartum: (3) Need for rhogam due to Rh negative mother: (4) Gestational diabetes mellitus (GDM) affecting , antepartum: (5) Supervision of elderly multigravida: Plan will be admitted for planned c/s on 04/26/24. plan am labs then and bedside glucose. discussed surgery, risks/benefits and consent signed. answered ?s. rhogam eval pp. History of Present Illness Chief Complaint: planned c/s Primary Care Provider: NO PCP 33yo at 39wks ega presents to LD for planned c/s on 04/26/24. No rom, vb. +FM. Some ctx, irregular. PNC c/b 1. Rh neg. 2. AMA 3. GDM diet controlled. 4. club foot?, suspected once but not seen on f/u 5. Prior molar , plan to send placenta to path. PNL rhneg, ri, gbs neg. OBH: c/s for FTD Allergies Allergy/AdvReac Type Severity Reaction Status Date / Time No Known Allergies Allergy Verified 04/25/24 08:25 Home Medications Medication Instructions Recorded Confirmed Type prenat.vits,nick,thc-[id number]-[id number] 1 tab PO DAILY 01/01/20 04/25/24 History acetone (urine) test (Ketone Urine #50 ea 02/29/24 04/25/24 Rx Test strips) blood sugar diagnostic (OneTouch #150 ea 02/29/24 04/25/24 Rx Verio test strips) blood-glucose meter (OneTouch #1 ea 02/29/24 04/25/24 Rx Verio Reflect Meter) lancets 33 gauge (OneTouch Delica #150 ea 02/29/24 04/25/24 Rx Plus Lancet) calcium carbonate (Tums) 200 mg PO BID PRN Acid Reflux 04/17/24 04/25/24 History docusate sodium 50 mg capsule 50 mg PO DAILY 04/17/24 04/25/24 History famotidine 20 mg tablet (Pepcid) 20 mg PO QPM 04/17/24 04/25/24 History ferrous sulfate 325 mg (65 mg 325 mg PO DAILY 04/17/24 04/25/24 History iron) tablet Patient History Medical History History of cholestasis during History of COVID-19 04/08/24 home test- nasal congestion/runny nose Molar hx History of gastroesophageal reflux (GERD) Surgical History History of dilatation and curettage H/O section S/P wisdom tooth extraction S/P eye surgery Family History Father Hearing loss Dyslipidemia Melanoma, Onset Age: 58 Sister Hypothyroidism Graves Asherman syndrome Mother Bipolar 1 disorder Grandfather (Maternal) Cardiac disorder Myocardial infarction Grandfather (Paternal) Prostate cancer Cardiac disorder Colorectal cancer Grandmother (Paternal) Cardiac disorder Son Hypospadias Other No family history of adverse response to anesthesia Denies family history of Malignant hypothermia due to anesthesia Ovarian cancer Breast cancer Social History Smoking Status: Never smoker Second Hand Exposure: No; Do You Dip or Chew Tobacco: No; Hx Alcohol Use: No Hx Substance Use: No Preferred Language: [place]an Communication Ability: Effective Visual Impairment: No Limitations Hearing Ability: Normal Upholstery Repairer Required: No Beliefs That Will Affect Care: None marital status: marital status details: Oscar Mena (35) [phone] or [phone] Current Living Situation: Spouse and Family Current Living Situation Comment: lives with spouse, child, no pets current occupational status: employed current occupation: [employer] Feels Safe at Home: Yes Childhood Exposure to Second-Hand Smoke: No Dental Care, Regularly: Yes Physical Activity Frequency: 1-2 Times per Week Seatbelt Use: always Sunscreen Use: Yes Assistive Devices: None Review of Systems as per Subjective / HPI Physical Exam Constitutional: WD/WN, vitals as above Respiratory: normal respiratory effort, lungs clear to auscultation Cardiovascular: Rate/Rhythm: regular rate and regular rhythm Gastrointestinal (Abdomen): soft gravid nt Musculoskeletal: no edema nontender calves Neurologic: grossly normal Psychiatric: A+Ox3, euthymic affect Genitourinary: NST reactive 04/25/24 Coding Level of Care Code None Diagnoses 39 weeks gestation of Z3A.39 Previous delivery affecting , antepartum O34.219 Need for rhogam due to Rh negative mother Z29.13 Gestational diabetes mellitus (GDM) affecting , antepartum O24.419 Supervision of elderly multigravida O09.529
[2024-04-26] MEDS: LACTATED RINGER'S 1,000 ML IV SCH ×2 (08:15→12:28)
[2024-04-26] MEDS: ACETAMINOPHEN 500 MG TAB ONE (08:33)
--- NOTE | 2024-04-26 08:46 | History & Physical Bridge Note ---
Date of Service April 26, 2024 History & Physical Bridge Note I have examined the patient, reviewed the History & Physical and in the interval since the performance of the History & Physical I have noted the following changes of clinical significance: no changes noted
[2024-04-26] MEDS ORDERED: KETOROLAC 30 MG/ML VIAL IV PRN (08:57)
[2024-04-26] MEDS ORDERED: NALOXONE HCL 1 MG in SODIUM CHLORIDE 0.9% 1,000 ML IV PRN (08:57)
[2024-04-26] MEDS ORDERED: MoRPHine SULFATE 2 MG/ML CARP IV PRN (08:57)
[2024-04-26] MEDS ORDERED: HYDROmorphone INJ 0.5 MG/0.5 ML SYR IV PRN (08:57)
[2024-04-26] MEDS ORDERED: LACTATED RINGER'S 500 ML IV PRN (08:57)
[2024-04-26] MEDS ORDERED: ONDANSETRON INJ 2 MG/ML 2 ML VIAL IV PRN ×2 (08:57→12:05)
[2024-04-26] MEDS ORDERED: NALOXONE HCL 0.4 MG/1 ML VIAL/CARP IV PRN (08:57)
[2024-04-26] MEDS ORDERED: NALOXONE HCL 0.08 MG in SYRINGE 1.8 ML IV PRN (08:57)
[2024-04-26] MEDS ORDERED: ePHEDrine sulfate 50 MG/ML AMP IV PRN (08:57)
[2024-04-26] MEDS ORDERED: NALBUPHINE HCL INJ 10 MG/ML AMP IV PRN (08:57)
[2024-04-26] MEDS ORDERED: diphenhydrAMINE 50 MG/ML VIAL IV PRN (08:57)
[2024-04-26] MEDS ORDERED: NO NARCOTICS OR SEDATIVES SCH (09:00)
[2024-04-26] MEDS ORDERED: DC INTRASPINAL MORPHINE SCH (09:00)
[2024-04-26] MEDS ORDERED: PHENYLEPHRINE HCL 25 MG/250 ML NSS IV ONE (09:01)
[2024-04-26] MEDS ORDERED: OXYTOCIN 10 UNITS/ML VIAL ONE (09:01)
[2024-04-26] MEDS ORDERED: fentaNYL citrate PF 100 MCG/2 ML VIAL ONE (09:02)
[2024-04-26] MEDS ORDERED: MoRPHine SULFATE PF 1 MG/ML 10 ML AMP/VIAL ONE (09:02)
[2024-04-26] MEDS: ACETAMINOPHEN 500 MG TAB PO SCH (09:29)
[2024-04-26] MEDS: CITRIC ACID/SODIUM CITRATE 15 ML UDC ONE (09:30)
[2024-04-26] MEDS: CITRIC ACID/SODIUM CITRATE 15 ML UDC PO SCH (10:04)
[2024-04-26] MEDS: ceFAZolin 2,000 MG in SYRINGE 0 ML IV SCH (10:13)
[2024-04-26] MEDS ORDERED: ONDANSETRON INJ 2 MG/ML 2 ML VIAL ONE (11:02)
[2024-04-26] MEDS ORDERED: KETOROLAC 30 MG/ML VIAL ONE (11:02)
[2024-04-26] MEDS ORDERED: PHENYLEPHRINE 100MCG/ML 10ML SYR IV ONE (11:28)
--- NOTE | 2024-04-26 11:29 | Operative Report ---
Post Operative Report Pre & Post Diagnosis Operation Date: 04/26/24 08:50 Pre-Op Diagnosis: (1) 39 weeks gestation of (2) Previous delivery (3) Gestational diabetes mellitus (4) AMA Post-Op Diagnosis: Same as pre-op I identified the patient and participated in the time-out.: Yes Procedure Operation Date: 04/26/24 08:50 Actual Procedures p Repeat Low Transverse Section; live male child at 1052(Bilateral) - Aziza Zaman MD, FACOG Surgeon Aziza Zaman MD, FACOG Certified Physical Therapist Assistant Callie Quantitative Blood Loss (QBL) 142 Findings Consistent with Post-Op Diagnosis (viable male . normal uterus tubes and ovaries bilaterally) Fluids 1300 Specimens cord blood, placenta Drains monte Anesthesia Type Spinal Complications none Disposition Accompanied Patient To Recovery: No Disposition: L&D Indications 34yo at 39+wks ega presents to LD for planned repeat c/s, with history of prior c/s. Description of Procedure The patient was taken to the operating room and identified. After adequate anesthesia was obtained, she was placed in the supine position with a leftward tilt on the operating table and prepped and draped in the usual sterile fashion. A monte catheter had already been placed. The knife was used to create a Pfannensteil skin incision that was carried down to the underlying layer of fascia. The old incision was excised, due to keloid. The fascia was nicked in the midline and this opening was extended laterally using Mayers scissors. Elmer clamps were placed on the superior and inferior aspect of the fascial incision tenting it upward and the underlying rectus muscles were dissected off the overlying fascia both sharply and bluntly using Mayers scissors. The rectus muscles were bluntly in the midline. The peritoneal cavity was bluntly entered into. This opening was stretched. The bladder blade was placed. The vesicouterine peritoneum was elevated and opened up into and the bladder flap was created digitally and bladder blade was replaced. The knife was used to create a hysterotomy and this opening was stretched. The operators hand was placed through the hysterotomy and the bladder blade was removed. The head was elevated and flexed and with fundal pressure the head was delivered. The shoulders and body were rapidly delivered. The cord was clamped and cut and the 's mouth and nares were bulb suction. The was handed off to the awaiting pediatricians. Cord blood was obtained. The placenta was manually expressed. The uterus was exteriorized and cleared of all clots and debris. Dilute IV Pitocin was begun. The uterine tone was improving. The hysterotomy was closed in a running interlocking fashion using 0 Vicryl followed by a second imbricating layer of 0 Vicryl. The hysterotomy was not hemostatic in midline and additional figure of eight suture of 2-0 vicryl used and excellent hemostasis achieved. The pelvis was suctioned. The uterus was returned to the abdomen. The gutters were cleared of all clots and debris. The hysterotomy was reinspected and noted to be hemostatic. The fascia was then closed in running fashion using 0 Vicryl. The subcutaneous fat was copiously irrigated and reapproximated using 2-0 chromic. The skin was closed in a subcuticular fashion using 4-0 monocryl. At this point the procedure was terminated. The patient was transferred to the recovery room in stable condition. All sponge, lap and needle counts are correct x2. I attest to the content of the Intraoperative Record and any orders documented therein. Any exceptions are noted below. OB Procedure Charges 25224
[2024-04-26] MEDS ORDERED: BENZOCAINE 20% SPRY 85 APPLN/85 GM CAN EXT PRN (12:05)
[2024-04-26] MEDS ORDERED: CALCIUM CARBONATE 500 MG CHEWABLE TAB PO PRN (12:05)
[2024-04-26] MEDS ORDERED: MAGNESIUM HYDROXIDE SUSP 30 ML UDC PO PRN (12:05)
[2024-04-26] MEDS ORDERED: SENNA 8.6 MG TAB PO PRN (12:05)
[2024-04-26] MEDS ORDERED: PROMETHAZINE 12.5 MG/50.5 ML BAG IV PRN (12:05)
[2024-04-26] MEDS ORDERED: HYDROCORTISONE ACETATE 25 MG SUPP PR PRN (12:05)
[2024-04-26] MEDS: DIPHTHER/TETAN/PERTUS Vaccine (Tdap, Adol/Adult) 0.5mL IM ONE (12:13)
[2024-04-26] MEDS: MoRPHine SULFATE PF 1 MG/ML 10 ML AMP/VIAL INT SPINAL ONE (12:27)
[2024-04-26] MEDS: SODIUM CHLORIDE 0.9% 1,000 ML IV SCH (12:27)
[2024-04-26] MEDS: SIMETHICONE 80 MG CHEW PO SCH (12:32)
[2024-04-26] MEDS: OXYTOCIN 20 UNITS/LR 1,002 ML IV SCH (12:42)
[2024-04-26] MEDS: IBUPROFEN 600 MG TAB PO SCH (14:00)
[2024-04-26] MEDS: ACETAMINOPHEN 325 MG TAB PO SCH (14:00)
--- NOTE | 2024-04-26 14:29 | Anesthesiology Progress Note ---
Date of Service April 26, 2024 Anesthesia Post Procedure Vital Signs Vital Signs: Temp Pulse Resp BP Pulse Ox 04/26/24 13:43 57 L 04/26/24 13:43 97/52 L 04/26/24 13:42 98 04/26/24 13:42 69 04/26/24 13:37 97 04/26/24 13:37 60 04/26/24 13:33 36.5 C 57 L 20 97/52 L 04/26/24 13:33 60 04/26/24 13:33 94/51 L 04/26/24 13:32 98 04/26/24 13:32 70 04/26/24 13:27 97 04/26/24 13:27 58 L 04/26/24 13:23 61 04/26/24 13:23 121/62 04/26/24 13:22 98 04/26/24 13:22 66 04/26/24 13:17 97 04/26/24 13:17 54 L 04/26/24 13:13 62 04/26/24 13:13 103/61 04/26/24 13:12 96 04/26/24 13:12 60 04/26/24 13:07 97 04/26/24 13:07 57 L 04/26/24 13:03 20 04/26/24 13:03 62 04/26/24 13:03 93/60 L 04/26/24 13:02 98 04/26/24 13:02 64 04/26/24 12:57 97 04/26/24 12:57 54 L 04/26/24 12:53 64 04/26/24 12:53 93/58 L 04/26/24 12:52 97 04/26/24 12:52 64 04/26/24 12:47 96 04/26/24 12:47 67 04/26/24 12:43 70 04/26/24 12:43 96/58 L 04/26/24 12:42 99 04/26/24 12:42 65 04/26/24 12:37 98 04/26/24 12:37 68 04/26/24 12:33 67 20 96 04/26/24 12:33 20 04/26/24 12:33 36.5 C 20 04/26/24 12:33 64 04/26/24 12:33 93/60 L 04/26/24 12:32 96 04/26/24 12:32 68 04/26/24 12:27 98 04/26/24 12:27 58 L 04/26/24 12:25 60 04/26/24 12:25 91/57 L 04/26/24 12:23 20 04/26/24 12:23 58 L 04/26/24 12:23 88/52 L 04/26/24 12:22 97 04/26/24 12:22 61 04/26/24 12:17 97 04/26/24 12:17 54 L 04/26/24 12:13 20 04/26/24 12:13 64 04/26/24 12:13 91/52 L 04/26/24 12:12 99 04/26/24 12:12 67 04/26/24 12:07 97 04/26/24 12:07 63 04/26/24 12:03 20 04/26/24 12:03 59 L 04/26/24 12:03 101/58 L 04/26/24 12:02 98 04/26/24 12:02 60 04/26/24 11:57 97 04/26/24 11:57 59 L 04/26/24 11:54 63 04/26/24 11:54 97/56 L 04/26/24 11:53 20 04/26/24 11:52 99 04/26/24 11:52 63 04/26/24 11:47 100 04/26/24 11:47 66 04/26/24 11:43 20 04/26/24 11:43 62 04/26/24 11:43 100/57 L 04/26/24 11:42 100 04/26/24 11:42 60 04/26/24 11:37 98 04/26/24 11:37 65 04/26/24 11:33 36.5 C 20 04/26/24 11:33 61 04/26/24 11:33 100/56 L 04/26/24 11:32 100 04/26/24 11:32 60 04/26/24 07:06 36.6 C 20 04/26/24 06:59 36.6 C 68 20 103/67 Transfer of Care Handoff Completed per policy Notes Mental Status: alert / awake / arousable and participated in evaluation Patient Amnestic to Procedure: Yes Nausea / Vomiting: adequately controlled Pain: adequately controlled Airway Patency, RR, SpO2: stable & adequate BP & HR: stable & adequate Hydration State: stable & adequate Neuraxial Anesthesia: was administered and sensory block is resolving Anesthetic Complications: no major complications apparent and Pt Satisfied with anesthetic care
[2024-04-26] MEDS: DOCUSATE SODIUM 100 MG CAP PO SCH (20:12)
[2024-04-27] MEDS ORDERED: HYDROmorphone INJ 0.5 MG/0.5 ML SYR IV PRN (02:57)
[2024-04-27] MEDS ORDERED: diphenhydrAMINE 50 MG/ML VIAL IV PRN (02:57)
[2024-04-27] MEDS ORDERED: diphenhydrAMINE Capsule 25 MG CAP PO PRN (02:57)
[2024-04-27] MEDS ORDERED: oxyCODONE HCL IR 5 MG TAB (IMMEDIATE RELEASE) PO PRN (02:57)
--- NOTE | 2024-04-27 06:21 | Obstetrical Progress Note ---
Date of Service April 27, 2024 Assessment & Plan (1) Encounter for supervision of normal in multigravida: Plan Pt is 34 yo post- day 1 s/p at 39w1d per US. complicated by GDM and Rh negative mother. Baby's blood type is also Rh negative Plan to encourage walking and breast feeding Tylenol and oxycodone for pain PRN Removed bandage, continue to monitor incision Education regarding incision care Upon discharge from hospital, pt to follow up with Dr. Zaman in 6 weeks Admission and Anticipated Discharge Date Admission Date: April 26, 2024 Supervising Physician Co-Signing Physician Notes Resident Physician Supervision Note: I interviewed and examined the patient. Discussed with Dr. Ventura and agree with findings and plan as documented in the note. Any exceptions or clarifications are listed here: stable doing well, eating, voiding, ambulating, some soreness but pain meds help. abd soft ff 2 down , appro mild tenderness, incision c/d/i. ext nt calves. pod#1 s/p c/s routine care, rh neg, baby rh neg, no rhogam needed. . hgb pending. Documented By: Aziza Zaman MD, FACOG Subjective Pt is 34 yo post- day 1 s/p at 39w1d per US. complicated by GDM and Rh negative mother. Ambulation:In and out of room Voiding:voiding normally Passing gas: yes BM:no Diet tolerance:regular diet Lochia:bloody, no clots Feeding type: breast Current pain level: 2-4/10 improved with ibuprofen and Tylenol Resting comfortably this morning in NAD. Denies GARIBAY, CP, SOB, N/V/D, LE pain/swelling. Review of Systems Constitutional: as per Subjective / HPI Physical Exam Constitutional: WD/WN, vitals as above Respiratory: normal respiratory effort, lungs clear to auscultation Cardiovascular: RRR, no murmur, no edema Gastrointestinal (Abdomen): normal bowel sounds, soft, nontender, no hepatosplenomegaly Uterine fundus is firm at level of umbilicus Incision is well approximated, clean, and dry. No drainage noted. Neurologic: PERRL, EOMI, accommodation nl, no face palsy, no dysarthria Moving all 4 extremities on command Psychiatric: A+Ox3, euthymic affect Results & Data Vital Signs (Past 12 Hours) Vital Signs Temp Pulse Resp BP BP Pulse Ox O2 Del Method 04/27/24 03:22 36.9 C 62 16 92/52 L 94 Room Air 04/26/24 23:07 36.5 C 78 16 94/62 L 94 Room Air 04/26/24 19:13 36.7 C 80 18 99/61 L 94 Room Air 04/26/24 19:00 20 100 Resident Activity Tracking Resident Involvement: Resident Care Provided Care Provided: Adult Hospital Medicine
[2024-04-27 07:12] LABS: Basophils # (auto) 0.03 K/uL (0.00-0.20); Basophils % (auto) 0.3 %; Eosinophils # (auto) 0.09 K/uL (0.00-0.50); Eosinophils % (auto) 0.8 %; Hematocrit (blood only) 31.2 % (37.0-47.0); Hemoglobin 10.5 g/dl (12.0-16.0); Immature Granulocytes # (auto) 0.11 K/uL (0.01-0.20); Lymphocytes # (auto) 1.66 K/uL (1.20-3.40); Lymphocytes % (auto) 14.4 %; Mean Corpuscular Hemoglobin 31.3 pg (25.0-34.0); Mean Corpuscular Hgb Conc 33.7 g/dL (32.0-36.0); Mean Corpuscular Volume 93.1 fL (80.0-100.0); Mean Platelet Volume 12.1 fL (9.4-12.4); Monocytes # (auto) 0.81 K/uL (0.11-0.59); Neutrophils # (auto) 8.82 K/uL (1.40-6.50); Neutrophils % (auto) 76.5 %; Platelet Count 139 K/uL (130-400); RDW Coefficient of Variation 12.3 % (11.5-14.5); RDW Standard Deviation 41.1 fL (36.4-46.3); Red Blood Count 3.35 M/uL (4.20-5.40); White Blood Count 11.52 K/ul (4.8-10.8)
[2024-04-27] MEDS: PRENATAL VITAMIN 1 TAB PO SCH (08:36)
[2024-04-27] MEDS: FERROUS SULFATE 325 MG TAB PO SCH (08:37)
[2024-04-27] MEDS: bisacodyL 5 MG TABEC PO SCH (19:47)
[2024-04-28 06:50] LABS: Hematocrit (blood only) 28.5 % (37.0-47.0); Hemoglobin 9.5 g/dl (12.0-16.0)
--- NOTE | 2024-04-28 08:12 | Obstetrical Progress Note ---
Date of Service April 28, 2024 Assessment & Plan (1) Encounter for care and examination after delivery: 34 yo POD 2 from [email or web address]S, doing well -Meeting all pp milestones. Notes belly still a bit bloated so some difficulty w/ deep breath with that but denies trouble with deep inspiration from lung perspective, O2 sat appropriate so don't think pulm issue -Rh neg, baby rh neg/rubella immune/ -f/u 6 weeks for appt, stable for dc today Subjective Ambulation: ambulating normally Voiding: no voiding problems Passing Gas:: Yes Diet Tolerance:: regular diet Lochia:: Small Feeding Type:: breast feeding Pain well managed with medication Review of Systems Denies fevers, chills, n/v, GARIBAY, CP, SOB Physical Exam Constitutional WD/WN, vitals as above no acute distress Respiratory normal respiratory effort, lungs clear to auscultation Cardiovascular RRR, no murmur, no edema Gastrointestinal (Abdomen) Percussion/Palpation: abdomen soft; abdomen nontender fundus firm at umbilicus and NT. Incision c/d/i Musculoskeletal BLE symmetric, nonerythematous, nontender Results & Data Vital Signs (Past 12 Hours) Vital Signs Temp Pulse Resp BP Pulse Ox O2 Del Method 04/27/24 23:21 97.7 F 66 16 102/63 97 Room Air
[2024-04-28] MEDS ORDERED: IBUPROFEN 600 MG TAB PO PRN (11:25)
[2024-04-28] MEDS ORDERED: ACETAMINOPHEN 325 MG TAB PO PRN (11:25)
[2024-04-28] MEDS ORDERED: bisacodyL 10 MG SUPP PR PRN (11:25)
[2024-04-28 13:17] VITALS: BP 109/73; PULSE 64; RESP 17; TEMP 97.9; O2SAT 100
== END 2024-04-28 15:17 | disposition home or self-care (01) | DRG 788 ==
LOC: 4S1 06:49 → EDSTATUS 07:30 → 4E2 15:04